=== PATIENT | female | born 1980 | race Caucasian/White ===

== ENCOUNTER 2019-04-05 09:28 | Emergency (ER) | payer OTHER ==
[2019-04-05 09:43] VITALS: TEMP 97.7
[2019-04-05] MEDS ORDERED: SODIUM CHLORIDE 0.9% 1,000 ML IV STA (09:58)
[2019-04-05] MEDS ORDERED: ONDANSETRON 4 MG/2 ML VIAL IVP STA (09:58)
[2019-04-05] MEDS ORDERED: MORPHINE SULFATE 4 MG/ML SYRINGE IV STA (09:58)
[2019-04-05 10:23] LABS: Anisocytosis Slight; Basophils # (A) 0.1 k/uL (0-0.2); Basophils % (A) 1 %; Eosinophils # (A) 0.2 k/uL (0-0.7); Eosinophils % (A) 3 %; HCT 40.6 % (34.0-46.0); HGB 12.9 gm/dL (11.4-16.0); Hypochromasia Slight; Lymphocytes # (A) 1.7 k/uL (1.0-4.8); Lymphocytes % (A) 19 %; MCHC 31.8 g/dL (31.0-37.0); Mean Platelet Volume 7.4; Monocytes # (A) 0.3 k/uL (0-1.0); Monocytes % (A) 4 %; Neutrophils # (A) 6.4 k/uL (1.3-7.7); Neutrophils % (A) 73 %; Platelet Count 397 k/uL (150-450); RBC 4.95 m/uL (3.80-5.40); RDW 16.7 % (11.5-15.5); WBC 8.9 k/uL (3.8-10.6)
[2019-04-05] MEDS ORDERED: HYDROmorphone 0.5 MG/0.5 ML SYRINGE IVP STA (10:31)
--- NOTE | 2019-04-05 10:34 | ED ---
General Adult HPI - General Chief complaint: Abdominal Pain Stated complaint: Lt side flank pain Time Seen by Provider: 04/05/19 09:40 Source: patient, RN notes reviewed Mode of arrival: ambulatory Limitations: no limitations - History of Present Illness Initial comments: 38-year-old female with a past medical history of pituitary tumor presents to the emergency department for chief complaint of right lower quadrant pain. States that this has been ongoing since this morning but worsened just prior to arrival. States it is a sharp pain in the right lower quadrant. States she feels like she has a pressure in her pelvis. States bowel movements are normal. States she feels that she has to urinate but cannot urinate much. Denies fevers or chills. Admits to nausea denies vomiting. States she has never had this pain before. Denies chance of .Patient has no other complaints at this time including shortness of breath, chest pain, nausea or vomiting, headache, or visual changes. - Related Data Home Medications Medication Instructions Recorded Confirmed Cabergoline 0.5mg 0.25 mg PO TUTH 04/05/19 04/05/19 Levothyroxine Sodium 88 mcg PO DAILY 04/05/19 04/05/19 Propranolol LA [Inderal LA] 60 mg PO DAILY 04/05/19 04/05/19 Venlafaxine HCl ER [Effexor Xr] 150 mg PO DAILY 04/05/19 04/05/19 Previous Rx's Medication Instructions Recorded Cephalexin [Keflex] 500 mg PO TID #10 cap 04/05/19 HYDROcodone/APAP 5-325MG [[place] 1 tab PO Q6HR PRN #10 tab 04/05/19 5-325] Ketorolac [Toradol] 10 mg PO TID #15 tab 04/05/19 Ondansetron [Zofran ODT] 4 mg PO Q8HR PRN #15 tab 04/05/19 Tamsulosin [Flomax] 0.4 mg PO DAILY #20 cap 04/05/19 Allergies Allergy/AdvReac Type Severity Reaction Status Date / Time No Known Allergies Allergy Verified 04/05/19 10:20 Review of Systems ROS Statement: Those systems with pertinent positive or pertinent negative responses have been documented in the HPI. ROS Other: All systems not noted in ROS Statement are negative. Past Medical History Additional Past Medical History / Comment(s): pitutary tumir History of Any Multi-Drug Resistant Organisms: None Reported Additional Past Surgical History / Comment(s): pitutiary tumor removal Past Psychological History: No Psychological Hx Reported Smoking Status: Never smoker Past Alcohol Use History: None Reported Past Drug Use History: Marijuana General Exam Limitations: no limitations General appearance: alert, anxious Head exam: Present: atraumatic, normocephalic, normal inspection Eye exam: Present: normal appearance, PERRL, EOMI. Absent: scleral icterus, conjunctival injection, periorbital swelling ENT exam: Present: normal exam, mucous membranes moist Neck exam: Present: normal inspection. Absent: tenderness, meningismus, lymphadenopathy Respiratory exam: Present: normal lung sounds bilaterally. Absent: respiratory distress, wheezes, rales, rhonchi, stridor Cardiovascular Exam: Present: regular rate, normal rhythm, normal heart sounds. Absent: systolic murmur, diastolic murmur, rubs, gallop, clicks GI/Abdominal exam: Present: soft, tenderness (Tenderness of the right lower quadrant without guarding or rebound. No right upper quadrant tenderness.), normal bowel sounds. Absent: distended, guarding, rebound, rigid Course Vital Signs 04/05/19 04/05/19 09:41 11:45 Temperature 97.7 F Pulse Rate 59 L 52 L Respiratory 20 18 Rate Blood Pressure 152/62 147/109 O2 Sat by Pulse 98 100 Oximetry Medical Decision Making - Medical Decision Making 38-year-old female with history of pituitary tumor presents to the emergency department for a chief complaint of right lower quadrant abdominal pain. This has been ongoing for just this morning. On presentation vitals are stable. However patient complaining of severe right lower quadrant pain. Patient does have some right lower quadrant tenderness. Some right CVA tenderness as well. CBC and CMP are unremarkable. There is a 5.3 x 3.6 no near calculus in the distal right ureter just proximal to the UVJ. There is a 3 mm nonobstructing right renal calculus as well. Moderate sized sliding hiatal hernia noted incidentally. She was given 3 different pain medications. Finally did have significant relief.Urine does show positive nitrites however only 2 white blood cells and negative leukocyte esterase. Therefore it will be cultured and pa tient will be treated. Recommended straining urine. Recommended following up with urology and primary care in 1-2 days. Patient will return here if she has any worsening symptoms. - Lab Data Result diagrams: 04/05/19 10:10 04/05/19 10:10 Lab Results 04/05/19 04/05/19 04/05/19 Range/Units 10:10 10:10 10:10 WBC 8.9 (3.8-10.6) k/uL RBC 4.95 (3.80-5.40) m/uL Hgb 12.9 (11.4-16.0) gm/dL Hct 40.6 (34.0-46.0) % MCV 82.0 (80.0-100.0) fL MCH 26.0 (25.0-35.0) pg MCHC 31.8 (31.0-37.0) g/dL RDW 16.7 H (11.5-15.5) % Plt Count 397 (150-450) k/uL Neutrophils % 73 % Lymphocytes % 19 % Monocytes % 4 % Eosinophils % 3 % Basophils % 1 % Neutrophils # 6.4 (1.3-7.7) k/uL Lymphocytes # 1.7 (1.0-4.8) k/uL Monocytes # 0.3 (0-1.0) k/uL Eosinophils # 0.2 (0-0.7) k/uL Basophils # 0.1 (0-0.2) k/uL Hypochromasia Slight Anisocytosis Slight Sodium 144 (137-145) mmol/L Potassium 4.4 (3.5-5.1) mmol/L Chloride 112 H (98-107) mmol/L Carbon Dioxide 20 L (22-30) mmol/L Anion Gap 12 mmol/L BUN 17 (7-17) mg/dL Creatinine 0.76 (0.52-1.04) mg/dL Est GFR (CKD-EPI)AfAm >90 (>60 ml/min/1.73 sqM) Est GFR (CKD-EPI)NonAf >90 (>60 ml/min/1.73 sqM) Glucose 99 (74-99) mg/dL Calcium 10.2 (8.4-10.2) mg/dL Total Bilirubin 0.5 (0.2-1.3) mg/dL AST 26 (14-36) U/L ALT 24 (9-52) U/L Alkaline Phosphatase 56 (38-126) U/L Total Protein 7.9 (6.3-8.2) g/dL Albumin 4.7 (3.5-5.0) g/dL Amylase 67 (30-110) U/L Lipase 132 (23-300) U/L Urine Color Urine Appearance (Clear) Urine pH (5.0-8.0) Ur Specific [place] (1.001-1.035) Urine Protein (Negative) Urine Glucose (UA) (Negative) Urine Ketones (Negative) Urine Blood (Negative) Urine Nitrite (Negative) Urine Bilirubin (Negative) Urine Urobilinogen (<2.0) mg/dL Ur Leukocyte Esterase (Negative) Urine RBC (0-5) /hpf Urine WBC (0-5) /hpf Ur Squamous Epith Cells (0-4) /hpf Urine Mucus (None) /hpf Urine HCG, Qual Not Detected (Not Detectd) 04/05/19 Range/Units 10:47 WBC (3.8-10.6) k/uL RBC (3.80-5.40) m/uL Hgb (11.4-16.0) gm/dL Hct (34.0-46.0) % MCV (80.0-100.0) fL MCH (25.0-35.0) pg MCHC (31.0-37.0) g/dL RDW (11.5-15.5) % Plt Count (150-450) k/uL Neutrophils % % Lymphocytes % % Monocytes % % Eosinophils % % Basophils % % Neutrophils # (1.3-7.7) k/uL Lymphocytes # (1.0-4.8) k/uL Monocytes # (0-1.0) k/uL Eosinophils # (0-0.7) k/uL Basophils # (0-0.2) k/uL Hypochromasia Anisocytosis Sodium (137-145) mmol/L Potassium (3.5-5.1) mmol/L Chloride (98-107) mmol/L Carbon Dioxide (22-30) mmol/L Anion Gap mmol/L BUN (7-17) mg/dL Creatinine (0.52-1.04) mg/dL Est GFR (CKD-EPI)AfAm (>60 ml/min/1.73 sqM) Est GFR (CKD-EPI)NonAf (>60 ml/min/1.73 sqM) Glucose (74-99) mg/dL Calcium (8.4-10.2) mg/dL Total Bilirubin (0.2-1.3) mg/dL AST (14-36) U/L ALT (9-52) U/L Alkaline Phosphatase (38-126) U/L Total Protein (6.3-8.2) g/dL Albumin (3.5-5.0) g/dL Amylase (30-110) U/L Lipase (23-300) U/L Urine Color Dark Brown Urine Appearance Clear (Clear) Urine pH 6.5 (5.0-8.0) Ur Specific [place] 1.021 (1.001-1.035) Urine Protein Trace H (Negative) Urine Glucose (UA) Negative (Negative) Urine Ketones Negative (Negative) Urine Blood Moderate H (Negative) Urine Nitrite Positive H (Negative) Urine Bilirubin 2+ H (Negative) Urine Urobilinogen 8.0 (<2.0) mg/dL Ur Leukocyte Esterase Negative (Negative) Urine RBC 108 H (0-5) /hpf Urine WBC 2 (0-5) /hpf Ur Squamous Epith Cells 2 (0-4) /hpf Urine Mucus Rare H (None) /hpf Urine HCG, Qual (Not Detectd) Disposition Clinical Impression: Ureterolithiasis Disposition: HOME SELF-CARE Condition: Good Instructions (If sedation given, give patient instructions): Kidney Stones (ED) Additional Instructions: Please take medications as directed. Please strain urine. Follow-up with urology and primary care in 1-2 days. Return here if you have any worsening symptoms such as uncontrolled pain or are unable to tolerate oral intake. Prescriptions: Tamsulosin [Flomax] 0.4 mg PO DAILY #20 cap Cephalexin [Keflex] 500 mg PO TID #10 cap HYDROcodone/APAP 5-325MG [[place] 5-325] 1 tab PO Q6HR PRN #10 tab PRN Reason: Pain Ketorolac [Toradol] 10 mg PO TID #15 tab Ondansetron [Zofran ODT] 4 mg PO Q8HR PRN #15 tab PRN Reason: Nausea Is patient prescribed a controlled substance at d/c from ED?: No Referrals: Toni Dempsey MD [Primary Care Provider] - 1-2 days Dennis Jones MD [STAFF PHYSICIAN] - 1-2 days Time of Disposition: 12:17
[2019-04-05 10:43] LABS: ALT 24 U/L (9-52); AST 26 U/L (14-36); African American GFR (CKD) >90 (>60 ml/min/1.73 sqM); Albumin 4.7 g/dL (3.5-5.0); Alkaline Phosphatase 56 U/L (38-126); Amylase 67 U/L (30-110); Anion Gap 12 mmol/L; Blood Urea Nitrogen 17 mg/dL (7-17); Calcium 10.2 mg/dL (8.4-10.2); Carbon Dioxide 20 mmol/L (22-30); Chloride 112 mmol/L (98-107); Glucose 99 mg/dL (74-99); Lipase 132 U/L (23-300); Potassium 4.4 mmol/L (3.5-5.1); Sodium 144 mmol/L (137-145); Total Bilirubin 0.5 mg/dL (0.2-1.3); Total Protein 7.9 g/dL (6.3-8.2)
--- NOTE | 2019-04-05 10:44 | ED ---
General Adult HPI - General Chief complaint: Abdominal Pain Stated complaint: Lt side flank pain Time Seen by Provider: 04/05/19 09:40 Source: patient Mode of arrival: ambulatory Limitations: no limitations - Related Data Home Medications Medication Instructions Recorded Confirmed Cabergoline 0.5mg 0.25 mg PO TUTH 04/05/19 04/05/19 Levothyroxine Sodium 88 mcg PO DAILY 04/05/19 04/05/19 Propranolol LA [Inderal LA] 60 mg PO DAILY 04/05/19 04/05/19 Venlafaxine HCl ER [Effexor Xr] 150 mg PO DAILY 04/05/19 04/05/19 Allergies Allergy/AdvReac Type Severity Reaction Status Date / Time No Known Allergies Allergy Verified 04/05/19 10:20 Review of Systems ROS Statement: Those systems with pertinent positive or pertinent negative responses have been documented in the HPI. ROS Other: All systems not noted in ROS Statement are negative. Past Medical History Additional Past Medical History / Comment(s): pitutary tumir History of Any Multi-Drug Resistant Organisms: None Reported Additional Past Surgical History / Comment(s): pitutiary tumor removal Past Psychological History: No Psychological Hx Reported Smoking Status: Never smoker Past Alcohol Use History: None Reported Past Drug Use History: Marijuana General Exam Limitations: no limitations Course Vital Signs 04/05/19 09:41 Temperature 97.7 F Pulse Rate 59 L Respiratory 20 Rate Blood Pressure 152/62 O2 Sat by Pulse 98 Oximetry Disposition Referrals: Toni Dempsey MD [Primary Care Provider] - 1-2 days
[2019-04-05 11:02] LABS: Appearance,Urine Clear (Clear); Bilirubin,Urine 2+ (Negative); Blood,Urine Moderate (Negative); Color,Urine Dark Brown; Glucose,Urine (UA) Negative (Negative); Ketones,Urine Negative (Negative); Leukocyte Esterase,Urine Negative (Negative); Mucus,Urine Rare /hpf; Nitrite,Urine Positive (Negative); PH, Urine 6.5 (5.0-8.0); Protein,Urine Trace (Negative); RBC,Urine 108 /hpf (0-5); Specific Gravity,Urine 1.021 (1.001-1.035); Squamous Epithelial Cell,Urine 2 /hpf (0-4); WBC,Urine 2 /hpf (0-5)
[2019-04-05] MEDS ORDERED: KETOROLAC 30 MG/ML 1 ML VIAL IVP STA (11:21)
[2019-04-05 11:52] VITALS: RESP 18
--- NOTE | 2019-04-05 11:57 | CT ---
EXAMINATION TYPE: CT abdomen pelvis w con DATE OF EXAM: 04/05/2019 REFERENCE: NONE HISTORY: Pain HISTORY: right flank pain CT DLP: 960.8 mGy Automated exposure control for dose reduction was used. TECHNIQUE: Helical acquisition through the abdomen and pelvis was obtained following the oral ingesti on of without Oral Contrast and following intravenous administration of 100 mL of Isovue 300. The toney a was reformatted in axial, coronal and sagittal projections. FINDINGS: There is minimal dependent atelectasis in the dependent portions of both lungs. There is n o pleural or pericardial fluid. The heart is not enlarged. There is a moderate-sized sliding hiatal hernia present. Within the abdomen, the liver, spleen and gallbladder are normal. Both adrenal glands are normal. There is a 3 mm nonobstructing stone in the anterior lower pole calyx of the right kidney. There is m oderate right-sided hydronephrosis there is a 5.3 x 3.6 mm calculus in the lower right ureter just pr oximal to the UVJ. The left kidney appears normal. The pancreas is unremarkable. There is no significant retroperitoneal, iliac or inguinal adenopathy. The bladder is not distended. There is follicular change of both ovaries. The uterus is unremarkable. Both the large and small bowel appear normal. The appendix is normal. No free fluid and no free air is seen. No bony lesion is seen. IMPRESSION: 1. 5.3 X 3.6 MM CALCULUS IN THE DISTAL RIGHT URETER JUST PROXIMAL TO THE UVJ. 2. 3 MM NONOBSTRUCTING RIGHT RENAL CALCULUS IN THE LOWER POLE. 3. MODERATE-SIZED SLIDING HIATAL HERNIA.
--- NOTE | 2019-04-05 12:31 | XR ---
EXAMINATION TYPE: XR KUB , 2 VIEWS DATE OF EXAM ORDERED: 04/05/2019 HISTORY: Pain. COMPARISON: None. FINDINGS: There is contrast within the renal collecting system from a recent CT scan. There is right -sided hydronephrosis and hydroureter ureter to the level of the bladder. The lung bases are clear. Within the abdomen, the abdominal gas pattern is normal. There is no evidence of obstruction or free air. No unusual calcifications are seen. IMPRESSION: RIGHT-SIDED HYDRONEPHROSIS AND HYDROURETER.
[2019-04-05 13:04] VITALS: BP 141/91; PULSE 60
== END 2019-04-05 13:04 | disposition home or self-care (01) ==
LOC: EC 09:28 → SUPCPDRO 09:28 → EC 13:04
DX: N13.2 Hydronephrosis with renal and ureteral calculous obstruction (principal); K44.9 Diaphragmatic hernia without obstruction or gangrene; Z86.018 Personal history of other benign neoplasm; Z79.890 Hormone replacement therapy; Z79.899 Other long term (current) drug therapy
CPT/HCPCS: 36415; 80053; 82150; 83690; 85025; 81001; 81025; 74018; 74177; 99284; 96374; 96375 ×3; 96361 ×2; J2270; J2405; J1885; J1170; Q9967